=== PATIENT | male | born 1975 | race Caucasian/White ===

== ENCOUNTER 2021-01-24 19:19 | Emergency (ER) | payer OTHER, SELFPAY ==
[2021-01-24 19:40] VITALS: BP 137/76; PULSE 69; RESP 18; TEMP 36.8; O2SAT 99; BMI 28.4
[2021-01-24] MEDS: Lidocaine HCl 2 % MPF 5 ML VIAL INFILTRATI (21:29)
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
== END 2021-01-24 22:55 | disposition home or self-care (01) ==
PROVIDERS: Emergency Provider Emergency Medicine
DX: S81.811A Laceration without foreign body, right lower leg, initial encounter (principal); V18.0XXA Pedal cycle driver injured in noncollision transport accident in nontraffic accident, initial encounter; Y93.55 Activity, bike riding; Y92.414 Local residential or business street as the place of occurrence of the external cause; Y99.9 Unspecified external cause status
CPT/HCPCS: 12001; 99284

== ENCOUNTER 2021-02-12 11:04 | Emergency (ER) | payer OTHER, SELFPAY ==
[2021-02-12 11:15] VITALS: BP 127/71; PULSE 68; RESP 18; TEMP 36.7; O2SAT 98; BMI 28.3
--- NOTE | 2021-02-12 11:15 | ED.WOUNDLAC ---
HPI - Wound/Laceration General Chief Complaint: Skin/Abscess/Foreign Body Stated Complaint: suture removal Time Seen by Provider: 02/12/21 11:15 History of Present Illness HPI narrative: Patient presents for removal of 1 suture from right lower leg, no complaints no redness no discharge no swelling no pain no fever Related Data Allergies Allergy/AdvReac Type Severity Reaction Status Date / Time No Known Allergies Allergy Verified 01/24/21 19:39 [No Known Allergies*] Review of Systems Review of Systems: Negative for no fever no chills no dizziness no weakness no joint pain no redness no swelling no discharge no rash no difficulty walking PMFSH Past Medical History Source: nursing notes reviewed Medical History (Updated 02/12/21 @ 11:18 by SILVESTRE Subramanian) No known health problems Social History Social History Alcohol intake: never Advance Directives: No Advance Directives Information Provided: No Physical Exam Vital Signs: Vital Signs: Last Vital Signs Temp 98.1 F 02/12/21 11:15 Pulse 68 02/12/21 11:15 Resp 18 02/12/21 11:15 BP 127/71 02/12/21 11:15 Pulse Ox 98 02/12/21 11:15 Body Mass Index 28.3 General appearance was no acute distress, com comfortable relaxed Head is normocephalic atraumatic Neck is supple Respiratory no distress Extremities right lower leg had a sutured wound with [address], no surrounding erythema no warmth no tenderness no discharge no swelling no difficulty ambulating the limp and no joint tenderness or swelling no red stripe up leg and neurovascular intact distal Course Course Course Narrative: One suture is removed from right lower leg laceration No wound dehiscence no redness no warmth no discharge no swelling no evidence of infection and patient ambulates easily and normally Discharge Plan Discharge Clinical Impression: Visit for suture removal Patient Disposition: Home, Self-Care Additional Instructions: I removed 1 suture The wound looks good there is no sign of infection or any problem Okay for all activities Return any concerns Interventions: ED Discharge Assessment Last Done: 02/12/21 11:22 Discharge Date/Time: 02/12/21 11:22
== END 2021-02-12 11:22 | disposition home or self-care (01) ==
PROVIDERS: Emergency Provider Emergency Medicine
DX: Z48.02 Encounter for removal of sutures (principal); S81.811D Laceration without foreign body, right lower leg, subsequent encounter; X58.XXXD Exposure to other specified factors, subsequent encounter
CPT/HCPCS: 99283

== ENCOUNTER 2025-06-01 03:01 | Emergency (ER) | payer OTHER, SELFPAY ==
[2025-06-01 03:04] VITALS: BP 141/71; PULSE 89; RESP 17; TEMP 36.4; O2SAT 98; BMI 28.2
[2025-06-01 03:22] VITALS: BP 125/74; PULSE 85; RESP 19; TEMP 36.9; O2SAT 94
--- NOTE | 2025-06-01 03:24 | ED_ITS ---
HPI - General Adult General Chief complaint: General Medical Stated complaint: nose bleed Time Seen by Provider: 06/01/25 03:24 Source: patient and family Mode of arrival: ambulatory Limitations: no limitations History of Present Illness ED Provider: Dr. Radha Wilkins HPI narrative: 49-year-old male with no significant past medical history presenting with cough, fever as high as 103?, sore throat and fatigue ongoing for the last 48 hours or so. Admits that his is sick with COVID-19, diagnosed the day before yesterday. He had a nosebleed tonight which stopped prior to arrival in the emergency department so he thought he would get evaluated for COVID-19 as well. Denies difficulty breathing, chest pain, syncope or near-syncope. Denies nausea, vomiting or diarrhea. His last COVID-19 vaccine was several years ago. Related Data Previous Rx's ?Medication ?Instructions ?Recorded nirmatrelvir 150 mg (10)-ritonavir See Rx Instructions PO .COMPLEX 06/01/25 100 mg (10) tablets in a dose pack #20 ea (Paxlovid) Allergies Allergy/AdvReac Type Severity Reaction Status Date / Time No Known Allergies (No Known Allergy Verified 06/01/25 03:05 Allergies*) Review of Systems Review of Systems: as per HPI, full review of systems performed and negative but for the above mentioned pertinent positives and negatives. [facility] Past Medical History [facility] Narrative: denies alcohol, tobacco, illicit substance use Medical History No known health problems Social History Social History Alcohol intake: never Smoked in Last 30 Days: No Use of substances other than those prescribed or required for medical reasons: No Advance Directives: No Advance Directives Information Provided: Yes Do you have a plan to hurt others: No Plan Physical Exam ED Exam Exam: GENERAL: Ill-Appearing, appears uncomfortable. SKIN: Normal skin color for ethnicity, warm, dry, no rashes noted. HEENT:? Normocephalic, atraumatic, no stridor, dry mucous membranes, dentition intact, EOMI. NECK: Soft, supple, full ROM, midline structures nontender, no step-offs, no deformities, no lymphadenopathy. CHEST: Heart regular tachycardia, no murmurs, symmetric chest rise and fall. PULMONARY: Clear to auscultation bilaterally, diminished at the bases, no labored breathing, no wheezes/rhales/rhonchi. ABDOMINAL: Soft, nondistended, nontender, positive bowel sounds in all quadrants. : Deferred. MUSCULOSKELETAL: Normal tone, full range of motion, no deformities, no peripheral edema. NEURO: Alert and oriented x3, CN II through XII intact, equal strength and sensation bilateral upper and lower extremities, no focal neurologic deficits.? PSYCHIATRIC: Flat affect, fluid speech, good eye contact and appropriate demeanor. Vital Signs: Vital Signs - 24 hr 06/01/25 03:04 06/01/25 03:22 Temperature 97.5 F 98.4 F Pulse Rate 89 85 Respiratory Rate 17 19 Blood Pressure 141/71 H 125/74 Pulse Oximetry 98 94 Oxygen Delivery Method Room Air Room Air BMI result Body Mass Index 28.2 Medications Administered Discontinued Medications Generic Name Dose Route Start Last Admin Trade Name Freq PRN Reason Stop Dose Admin Ibuprofen 600 mg 06/01/25 04:20 06/01/25 04:59 Ibuprofen 600 Mg Tablet PO 06/01/25 04:21 600 mg ONCE ONE Administration Medical Decision Making Medical Decision Making [facility] Narrative: Patient presents today with flu-like symptoms. Differential diagnosis includes influenza, coronavirus, pneumonia, upper respiratory infection, among others. Most importantly, this patient is not in any acute respiratory distress. They have normal oxygen levels at room air. I have discussed medication and other home therapies that will help the patient and have discussed strict return precautions. Instructed that symptoms may worsen and the patient might need re-evaluation or even hospitalization in the future, but did not show signs of this at the time of discharge. Using shared decision making, patient opted for paxlovid treatment. He is within the treat ment window. Differential Diagnosis Differential Diagnoses: The differential diagnosis associated with the presentation includes (s above) Admission/Observation Consideration of admission/observation: Escalation of care including admission/observation considered Lab Data [facility] Lab Attestation statement: I reviewed the patient's lab results. Labs: Lab Results 06/01/25 Range/Units 03:29 Influenza Type A (PCR) NEGATIVE (Negative) Influenza Type B (PCR) NEGATIVE (Negative) RSV RNA Qual (PCR) NEGATIVE (Negative) SARS-CoV-2 RNA (RT-PCR) POSITIVE A (Negative) Independent Historian Clinical information obtained from an independent historian. History obtained from or confirmed by: Spouse Prescription Management I considered prescription management with: Antiviral Discharge Plan Discharge Clinical Impression: COVID-19, Acute anterior epistaxis, Acute viral syndrome Patient Disposition: Home, Self-Care Instructions: Nosebleed (ED), COVID-19: Slow the Coronavirus Spread (ED) Prescriptions: New Paxlovid 150 mg (10)- 100 mg (10) tablets,dose pack See Rx Instructions .ROUTE .COMPLEX Qty: 20 0RF Rx Instructions: take ONE 150 mg tablet of nirmatrelvir with ONE 100 mg tablet of ritonavir twice daily for 5 days Stand Alone Forms: Work/School Release Interventions: ED Discharge Assessment Last Done: 06/01/25 05:08 Discharge Date/Time: 06/01/25 05:10 Print Language: American
[2025-06-01 04:11] LABS: Resp Syncy Virus RNA Qual PCR NEGATIVE (Negative); SARS COV2 PCR INHOUSE POSITIVE (Negative)
[2025-06-01 05:02] VITALS: BP 128/73; PULSE 71; RESP 17; TEMP 36.9; O2SAT 96
[2025-06-01 05:08] VITALS: BP 128/73; PULSE 71; RESP 17; TEMP 36.9; O2SAT 96
== END 2025-06-01 05:10 | disposition home or self-care (01) ==
PROVIDERS: Emergency Provider Emergency Medicine
DX: U07.1 COVID-19 (principal); B34.9 Viral infection, unspecified; R04.0 Epistaxis; R50.9 Fever, unspecified; R05.9 Cough, unspecified
CPT/HCPCS: 87637; 99283; 99284